=== PATIENT | male | born 1955 | race Caucasian/White ===

== ENCOUNTER 2017-08-01 09:32 | Emergency (ER) | payer OTHER ==
[2017-08-01 10:06] VITALS: BP 148/93
--- NOTE | 2017-08-01 10:08 | UC ---
Complaint Male HPI - HPI Summary HPI Summary: Pt presents with glenis bleeding from his urethra noticed about 20minutes [employer]. He tells me that he was have a BM this morning and everything was normal for him - not straining and well formed brown stool without darkness or blood. When he went to clean himself, he noticed blood on the paper and in the bowl - soon realized that the blood was coming from his penis. He cleansed the area and found the blood to be coming out of his urethra spontaneously. He applied pressure to the area and came to urgent care. He has no pain. His last prostate exam was within the last 2 years by his PCP. No hx of renal calculi. Denies fever, chills, abdominal pain, n/v/d/c, dysuria, burning with urination, penile discharge prior to today, recent illness, or trauma. - History of Current Complaint Chief Complaint: UCGU Stated Complaint: PERSONAL Time Seen by Provider: 08/01/17 10:07 Hx Obtained From: Patient Onset/Duration: Sudden Onset Severity Currently: None Pain Intensity: 0 - Allergies/Home Medications Allergies/Adverse Reactions: Allergies Allergy/AdvReac Type Severity Reaction Status Date / Time Penicillins Allergy Unknown Verified 08/01/17 10:01 Reaction Details Home Medications: Home Medications Algea 1 tab PO DAILY 08/01/17 [History Confirmed 08/01/17] PMH/Surg Hx/FS Hx/Imm Hx Previously Healthy: Yes Cardiovascular History: Hypertension - Surgical History Surgical History: None - Social History Alcohol Use: Rare Substance Use Type: Marijuana Substance Use Comment - Amount & Last Used: 3-4 times weekly Smoking Status (MU): Never Smoked Tobacco Review of Systems Constitutional: Negative Skin: Negative Respiratory: Negative Cardiovascular: Negative Gastrointestinal: Negative Genitourinary: Hematuria Motor: Negative Neurological: Negative Psychological: Negative All Other Systems Reviewed And Are Negative: Yes Physical Exam - Summary Physical Exam Summary: GENERAL: NAD. WDWN. No pain distress. SKIN: No rashes, sores, ulcers, masses, lesions. NECK: Supple. Nontender. No lymphadenopathy. CHEST: CTAB. No r/r/w. No accessory muscle use. Breathing comfortably and in no distress. CV: RRR. Without m/r/g. Pulses intact. Brisk cap refill. ABDOMEN: Soft. NTTP. No distention or guarding. No organomegaly. No CVA tenderness. Bowel sounds present x4. : 1mm skin tag on distal glans that is moderately erythematous, but not actively bleeding. Urethral meatus is without laceration, bleeding, or discharge. No testicular pain. No genital edema, rashes, or lesions. NTTP inguinal region. No LAD. NEURO: Alert. CN II-XII grossly intact. PSYCH: Age appropriate behavior. Triage Information Reviewed: Yes Vital Signs: Initial Vital Signs Temp 97.6 F 08/01/17 10:03 Pulse 87 08/01/17 10:03 Resp 16 08/01/17 10:03 BP 148/93 08/01/17 10:03 Pulse Ox 97 08/01/17 10:03 Complaint Male Course/Dx - Course Course Of Treatment: UA with trace blood and is yellow/clear in color. Pt was given water to drink and observed in the clinic for about 1 hour. He had two episodes of yellow/clear urination without any glenis blood. He remained asymptomatic during his course here. I will discharge him with a referral to Urology for further investigation. If his symptoms return or if he develops pain - go to ED. I spoke with Dr. Rios regarding pt and plan and she was in agreement. - Differential Dx/Diagnosis Provider Diagnoses: Bleeding from penis Discharge - Discharge Plan Condition: Stable Disposition: HOME Patient Education Materials: Hematuria (ED) Referrals: Buster Ridley MD [Primary Care Provider] - Huy Cartwright MD [Medical Doctor] - As Soon As Possible Additional Instructions: If you develop a fever, shortness of breath, chest pain, new or worsening symptoms - please call your PCP or go to the ED. Your blood pressure was high at todays visit. Please see your primary provider within 4 weeks for recheck and re-evaluation. 1) Please call Urology at the number below to schedule an appointment 2) If you has another episode of bleeding or if you develop pain, please go to the ED.
== END 2017-08-01 11:21 | disposition home or self-care (01) ==
LOC: UCEAST 09:32
DX: N48.89 Other specified disorders of penis (principal); I10 Essential (primary) hypertension; Z88.0 Allergy status to penicillin
CPT/HCPCS: 81003; 99211; G0463